=== PATIENT | male | born 1960 | race African-American/Black ===

== ENCOUNTER 2017-05-28 14:21 | Emergency (ER) | payer OTHER ==
[2017-05-28 14:26] VITALS: RESP 18
[2017-05-28] MEDS ORDERED: HYDROcodone/APAP 5-325MG 1 EACH TAB PO STA (14:34)
[2017-05-28] MEDS ORDERED: cloNIDine HCL 0.2 MG TAB PO STA (14:34)
--- NOTE | 2017-05-28 14:38 | ED ---
General Adult HPI - General Chief complaint: Extremity Injury, Lower Stated complaint: Ankle injury Time Seen by Provider: 05/28/17 14:29 Source: patient, RN notes reviewed, old records reviewed Mode of arrival: ambulatory Limitations: no limitations - History of Present Illness Initial comments: If complaint and history of present illness this is a 56-year-old male to complaint of right ankle pain and swelling for the past 3 days. States she does not know what happened. He did have a previous ankle sprain several years ago. Patient denies ever having had gout before. The patient states he does have a history of high blood pressure and does not take medications current blood pressure 180/100. He will be given Catapres for that x-ray of the ankle pending with uric acid pending. - Related Data Previous Rx's Medication Instructions Recorded Hydrocodone/Acetaminophen [[place] 1 each PO Q6HR PRN #10 tab 05/28/17 5-325] Ibuprofen [Motrin] 600 mg PO Q6HR PRN #20 tab 05/28/17 amLODIPine BESYLATE [Norvasc] 5 mg PO DAILY #60 tablet 05/28/17 Allergies Allergy/AdvReac Type Severity Reaction Status Date / Time No Known Allergies Allergy Verified 05/28/17 14:52 Review of Systems ROS Statement: Those systems with pertinent positive or pertinent negative responses have been documented in the HPI. Review of systems patient has no other complaints other than right ankle pain. Denies headache visual acuity changes no chest pain shortness breath GI/ problems. No neuro deficits. The patient's past medical problems possible high blood pressure which patient reports she does not take medications. Previous ankle sprain. Denies any surgeries. Denies ALLERGIES. Family history noncontributory ROS Other: All systems not noted in ROS Statement are negative. Past Medical History Past Medical History: No Reported History History of Any Multi-Drug Resistant Organisms: None Reported Past Surgical History: No Surgical Hx Reported Additional Past Surgical History / Comment(s): wrist surg. yrs. ago Past Anesthesia/Blood Transfusion Reactions: No Reported Reaction Past Psychological History: No Psychological Hx Reported Smoking Status: Never smoker Past Alcohol Use History: Occasional Past Drug Use History: None Reported - Past Family History Mother Family Medical History: No Reported History General Exam - General Exam Comments Initial Comments: General: The patient is awake and alert, playing of pain and swelling right ankle for 3 days. Vital signs elevated blood pressure 180/100. Eye: Pupils are equal, round and reactive to light, extra-ocular movements are intact ; there is normal conjunctiva bilaterally. No signs of icterus. Ears, nose, mouth and throat: There are moist mucous membranes and no oral lesions. Neck: The neck is supple, there is no tenderness. Cardiovascular: There is a regular rate and rhythm. No murmur, rub or gallop is appreciated. Respiratory: Lungs are clear to auscultation, respirations are non-labored, breath sounds are equal. No wheezes, stridor, rales, or rhonchi. Gastrointestinal: Soft, non-distended, non-tender abdomen without masses or organomegaly noted. There is no rebound or guarding present. No CVA tenderness. Bowel sounds are unremarkable. Back: There is no tenderness to palpation in the midline. There is no obvious deformity. Musculoskeletal: All extremities normal except right ankle which is swollen. The patient has flat feet. Neurovascular status of foot is intact. Not red or hot but it is swollen. Decreased range of motion secondary to pain. No pain to his knee or toes. Neurological: No evidence or complaints of any neuro deficits. Skin: Skin is warm and dry and no rashes or lesions are noted. Limitations: no limitations Course Vital Signs 05/28/17 05/28/17 05/28/17 14:23 15:00 16:05 Temperature 97.9 F Pulse Rate 106 H 80 Respiratory 18 18 Rate Blood Pressure 242/123 185/102 193/87 O2 Sat by Pulse 98 100 Oximetry 05/28/17 16:25 Temperature 98.4 F Pulse Rate 71 Respiratory 18 Rate Blood Pressure 168/75 O2 Sat by Pulse 100 Oximetry Medical Decision Making - Medical Decision Making Rectal decision making; x-ray of the ankle was done and reviewed by radiologist his impression is there is a plantar calcaneal spur. There is spurring of the anterior posterior malleolus. I see no fracture or dislocation. Final impression mild osteoarthritis. No fracture. Calcaneal spurring. No change. As read by Dr. Escamilla Uric acid 6.9. Medical decision making; patient's blood pressure remained elevated despite oral pain medication. He was given by mouth Catapres as well. Eventually an IV was started and was given 20 mg of hydralazine IV push 1 mg of Dilaudid IV push with good results. The patient's pain subsided. Blood pressure coming down currently 160/90. The patient reports she's never been on blood pressure medication he will be started on blood pressure meds at this time. Advised to call follow up with his family physician. Patient with placed on Norvasc 5 mg one daily and follow-up with family physician. - Lab Data Lab Results 05/28/17 Range/Units 14:43 Uric Acid 6.9 (3.5-8.5) mg/dL Disposition Clinical Impression: Right ankle sprain, Hypertension Disposition: HOME SELF-CARE Condition: Stable Instructions: Ankle Sprain (ED), Hypertension (ED) Additional Instructions: Ice elevate and rest your ankle. Take Norvasc for blood pressure problems. Follow-up with family physician for recheck of blood pressure. Take pain medication as directed. Prescriptions: amLODIPine BESYLATE [Norvasc] 5 mg PO DAILY #60 tablet Hydrocodone/Acetaminophen [[place] 5-325] 1 each PO Q6HR PRN #10 tab PRN Reason: Pain Ibuprofen [Motrin] 600 mg PO Q6HR PRN #20 tab PRN Reason: Pain Referrals: Shane Harrison MD [Primary Care Provider] - 1-2 days Time of Disposition: 16:41
--- NOTE | 2017-05-28 15:03 | XR ---
EXAMINATION TYPE: XR ankle complete RT DATE OF EXAM: 05/28/2017 COMPARISON: 11/29/2015 Pain HISTORY: Pain TECHNIQUE: 3 views. FINDINGS: There is a plantar calcaneal spur. There is spurring of the anterior and posterior malleolus. I see n o fracture nor dislocation. IMPRESSION: Mild osteoarthritis. No fracture. Calcaneal spurring. No change.
[2017-05-28] MEDS ORDERED: hydrALAZINE HCL 20 MG/ML 1 ML VIAL IVP STA (15:49)
[2017-05-28] MEDS ORDERED: HYDROmorphone 2 MG/ML 1 ML SYRINGE IVP STA (15:49)
[2017-05-28] MEDS ORDERED: HYDROmorphone 0.5 MG/0.5 ML SYRINGE IVP STA (15:57)
[2017-05-28] MEDS ORDERED: SODIUM CHLORIDE 0.9% 1,000 ML IV SCH (16:00)
[2017-05-28 16:26] VITALS: BP 168/75; PULSE 71; TEMP 98.4
== END 2017-05-28 16:52 | disposition home or self-care (01) ==
LOC: EC 14:21
DX: S93.401A Sprain of unspecified ligament of right ankle, initial encounter (principal); I10 Essential (primary) hypertension
CPT/HCPCS: 36415; 84550; 73610; 99284; 96374; 96375; J0360; J1170

== ENCOUNTER 2018-11-23 14:39 | Emergency (ER) | payer OTHER ==
[2018-11-23 14:43] VITALS: RESP 16
--- NOTE | 2018-11-23 15:46 | ED ---
Extremity Problem HPI - General Chief complaint: Extremity Problem,Nontraumatic Stated complaint: Ankle pain Time Seen by Provider: 11/23/18 14:50 Source: patient Mode of arrival: wheelchair Limitations: no limitations - History of Present Illness Initial comments: Patient is a 58-year-old male presenting to emergency Department with left foot pain. Patient states that he developed pain in the ankle region about a week ago that has been progressively worsening severity. Patient states the pain is throbbing and does not radiate anywhere. Patient states that he has been taking Motrin 500 to alleviate the pain with minimal improvement. Patient reports swelling in the ankle region that has slightly decreased in severity with using ice packs. Patient reports he developed erythema in the region that does not resolve. Patient denies fever, headache, nausea, vomiting. Patient states that the pain is so severe that he is unable to bear weight. Patient denies any tenderness over the calf and denies any cough or shortness of breath, chest pain or chest tightness. - Related Data Home Medications Medication Instructions Recorded Confirmed Acetaminophen [Tylenol Extra 1,500 mg PO TID PRN 11/23/18 11/23/18 Strength] Allergies Allergy/AdvReac Type Severity Reaction Status Date / Time No Known Allergies Allergy Verified 11/23/18 14:48 Review of Systems ROS Statement: Those systems with pertinent positive or pertinent negative responses have been documented in the HPI. ROS Other: All systems not noted in ROS Statement are negative. Past Medical History Past Medical History: No Reported History History of Any Multi-Drug Resistant Organisms: None Reported Past Surgical History: No Surgical Hx Reported Additional Past Surgical History / Comment(s): wrist surg. yrs. ago Past Anesthesia/Blood Transfusion Reactions: No Reported Reaction Past Psychological History: No Psychological Hx Reported Smoking Status: Never smoker Past Alcohol Use History: Occasional Past Drug Use History: None Reported - Past Family History Mother Family Medical History: No Reported History General Exam Limitations: no limitations General appearance: alert Head exam: Present: atraumatic, normocephalic, normal inspection Eye exam: Present: normal appearance Pupils: Present: normal accommodation Respiratory exam: Present: normal lung sounds bilaterally Cardiovascular Exam: Present: regular rate, normal rhythm, normal heart sounds Left Upper Leg exam: Present: normal inspection, full ROM Knee exam: Present: normal inspection, full ROM Lower Leg exam: Present: normal inspection, full ROM. Absent: Homans' sign Ankle exam: Present: tenderness (Pain along the medial and lateral malleoli), swelling, erythema. Absent: abrasion, laceration, ecchymosis, anterior draw sign Foot/Toe exam: Present: normal inspection, full ROM. Absent: tenderness, tenderness at base of 5th metatarsal Neurovascular tendon exam: Present: no vascular compromise Gait: unable to bear weight Neurological exam: Present: alert, oriented X3 Psychiatric exam: Present: normal affect, normal mood Skin exam: Present: warm, normal color Course Vital Signs 11/23/18 14:40 Temperature 97.7 F Pulse Rate 99 Respiratory 16 Rate Blood Pressure 160/82 O2 Sat by Pulse 99 Oximetry Medical Decision Making - Medical Decision Making Patient is a 58-year-old male present emergency department with left foot pain. X-rays negative for any acute fractures or dislocations. Swelling is most likely due to previous deltoid ligament injury. Patient advised to use Tylenol pain control. Patient advised to keep leg elevated and ice it to minimize swelling. Patient will be discharged with crutches and advised to minimize weightbearing. Patient advised to follow-up with orthopedics. Patient advised to return to emergency department if symptoms worsen. Case discussed with physician. Disposition Clinical Impression: Ankle sprain Disposition: HOME SELF-CARE Condition: Stable Instructions (If sedation given, give patient instructions): Ankle Sprain (ED) Additional Instructions: Please take time for pain control. Please follow up with orthopedics. Please return to emergency department if symptoms worsen. Keep leg elevated and use ice to minimize swelling. Is patient prescribed a controlled substance at d/c from ED?: No Referrals: Shane Harrison MD [Primary Care Provider] - 1-2 days
--- NOTE | 2018-11-23 16:12 | XR ---
EXAMINATION TYPE: XR ankle complete LT DATE OF EXAM: 11/23/2018 CLINICAL HISTORY: Medial left ankle pain and swelling after twisting injury 2 weeks ago TECHNIQUE: Frontal, lateral and oblique images of the left ankle are obtained. COMPARISON: None. FINDINGS: There is no acute fracture/dislocation evident in the left ankle. Well-corticated osseous fragment is seen inferior to the medial malleolus technical service representative of old deltoid ligament injury. Smal l vessel atherosclerosis is seen posterior to the tibiotalar joint. Very small plantar enthesophyte i s seen. The ankle mortise appears within normal limits. The overlying soft tissue appears unremarkab le. IMPRESSION: Soft tissue swelling over the medial ankle inferior to the medial malleolus. Sequela of p rior deltoid ligament injury. No acute fracture or malalignment of the left ankle.
[2018-11-23 16:42] VITALS: BP 138/74; PULSE 89; TEMP 97.8
== END 2018-11-23 16:41 | disposition home or self-care (01) ==
LOC: EC 14:39
DX: S93.401A Sprain of unspecified ligament of right ankle, initial encounter (principal); X58.XXXA Exposure to other specified factors, initial encounter
CPT/HCPCS: 99283

== ENCOUNTER 2019-07-12 14:54 | Emergency (ER) | payer OTHER ==
[2019-07-12] MEDS ORDERED: IPRATROPIUM-ALBUTEROL 3 ML NEB INHALATION STA (16:13)
[2019-07-12] MEDS ORDERED: SODIUM CHLORIDE 0.9% 1,000 ML IV STA (16:13)
[2019-07-12] MEDS ORDERED: ACETAMINOPHEN TAB 500 MG TAB PO STA (16:13)
--- NOTE | 2019-07-12 16:16 | ED ---
General Adult HPI - General Chief complaint: Upper Respiratory Infection Stated complaint: Cough Time Seen by Provider: 07/12/19 15:42 Source: patient, RN notes reviewed Mode of arrival: ambulatory Limitations: no limitations - History of Present Illness Initial comments: Patient is a pleasant 55-year-old male presenting to the emergency Department with several complaints. Onset of symptoms was a couple of days ago. Patient does have cough with occasional green sputum. Patient does have chest discomfort that he relates to the cough and has been constant. Patient also complains of headaches that he also states is related with the cough. Patient has had chills and myalgias. Patient is unclear if he has had fever or not. Sometimes patient feels she may be a little short of breath. No history of similar symptoms previously. No leg pain or leg swelling. - Related Data Home Medications Medication Instructions Recorded Confirmed Acetaminophen [Tylenol Extra 1,500 mg PO TID PRN 11/23/18 11/23/18 Strength] Previous Rx's Medication Instructions Recorded Albuterol Nebulized [Ventolin 2.5 mg INHALATION QID PRN #125 nebu 07/12/19 Nebulized] predniSONE 20 mg PO BID #10 tab 07/12/19 Allergies Allergy/AdvReac Type Severity Reaction Status Date / Time No Known Allergies Allergy Verified 07/12/19 14:59 Review of Systems ROS Statement: Those systems with pertinent positive or pertinent negative responses have been documented in the HPI. ROS Other: All systems not noted in ROS Statement are negative. Constitutional: Reports: as per HPI, chills Eyes: Denies: eye pain ENT: Denies: ear pain Respiratory: Reports: cough, dyspnea Cardiovascular: Reports: as per HPI Endocrine: Reports: fatigue Gastrointestinal: Denies: abdominal pain Genitourinary: Denies: dysuria Musculoskeletal: Denies: back pain Skin: Denies: rash Neurological: Reports: as per HPI, headache Past Medical History Past Medical History: No Reported History History of Any Multi-Drug Resistant Organisms: None Reported Past Surgical History: No Surgical Hx Reported Additional Past Surgical History / Comment(s): wrist surg. yrs. ago Past Anesthesia/Blood Transfusion Reactions: No Reported Reaction Past Psychological History: No Psychological Hx Reported Smoking Status: Never smoker Past Alcohol Use History: Occasional Past Drug Use History: None Reported - Past Family History Mother Family Medical History: No Reported History General Exam Limitations: no limitations General appearance: alert, in no apparent distress Head exam: Present: normocephalic Eye exam: Present: normal appearance, PERRL ENT exam: Present: normal oropharynx Neck exam: Present: normal inspection. Absent: tenderness, meningismus Respiratory exam: Present: rhonchi Cardiovascular Exam: Present: regular rate, normal rhythm GI/Abdominal exam: Present: soft. Absent: tenderness Extremities exam: Present: normal inspection. Absent: pedal edema, calf tenderness Neurological exam: Present: alert Psychiatric exam: Present: normal affect, normal mood Skin exam: Present: normal color Course Vital Signs 07/12/19 07/12/19 07/12/19 14:59 16:32 16:39 Temperature 97.8 F Pulse Rate 87 82 83 Respiratory 18 16 16 Rate Blood Pressure 151/92 O2 Sat by Pulse 98 Oximetry 07/12/19 18:12 Temperature 98.1 F Pulse Rate 85 Respiratory 18 Rate Blood Pressure 131/81 O2 Sat by Pulse 97 Oximetry Medical Decision Making - Medical Decision Making Patient reevaluated and resting comfortably in bed. Patient states mild improvement of symptoms. Patient denies any chest discomfort. Patient updated on results. Patient presents with symptoms likely infectious/upper respiratory or gym. Despite this patient was offered admission for further evaluation for c ardiac however patient refuses this stating it is not necessary. - Lab Data Result diagrams: 07/12/19 16:09 07/12/19 16:09 Lab Results 07/12/19 07/12/19 07/12/19 Range/Units 16:09 16:09 16:09 WBC 5.3 (3.8-10.6) k/uL RBC 4.66 (4.30-5.90) m/uL Hgb 13.8 (13.0-17.5) gm/dL Hct 40.5 (39.0-53.0) % MCV 86.8 (80.0-100.0) fL MCH 29.6 (25.0-35.0) pg MCHC 34.0 (31.0-37.0) g/dL RDW 12.2 (11.5-15.5) % Plt Count 285 (150-450) k/uL Neutrophils % 45 % Lymphocytes % 39 % Monocytes % 6 % Eosinophils % 6 % Basophils % 0 % Neutrophils # 2.4 (1.3-7.7) k/uL Lymphocytes # 2.1 (1.0-4.8) k/uL Monocytes # 0.3 (0-1.0) k/uL Eosinophils # 0.3 (0-0.7) k/uL Basophils # 0.0 (0-0.2) k/uL PT 10.2 (9.0-12.0) sec INR 0.9 (<1.2) APTT 24.9 (22.0-30.0) sec D-Dimer 0.38 (<0.60) mg/L FEU Sodium 141 (137-145) mmol/L Potassium 4.4 (3.5-5.1) mmol/L Chloride 104 (98-107) mmol/L Carbon Dioxide 22 (22-30) mmol/L Anion Gap 15 mmol/L BUN 18 (9-20) mg/dL Creatinine 1.01 (0.66-1.25) mg/dL Est GFR (CKD-EPI)AfAm >90 (>60 ml/min/1.73 sqM) Est GFR (CKD-EPI)NonAf 81 (>60 ml/min/1.73 sqM) Glucose 123 H (74-99) mg/dL Calcium 9.4 (8.4-10.2) mg/dL Total Bilirubin 0.5 (0.2-1.3) mg/dL AST 45 (17-59) U/L ALT 42 (4-49) U/L Alkaline Phosphatase 80 (38-126) U/L Troponin I (0.000-0.034) ng/mL NT-Pro-B Natriuret Pep pg/mL Total Protein 8.3 H (6.3-8.2) g/dL Albumin 4.9 (3.5-5.0) g/dL Influenza Type A RNA (Not Detectd) Influenza Type B (PCR) (Not Detectd) 07/12/19 07/12/19 07/12/19 Range/Units 16:09 16:09 16:20 WBC (3.8-10.6) k/uL RBC (4.30-5.90) m/uL Hgb (13.0-17.5) gm/dL Hct (39.0-53.0) % MCV (80.0-100.0) fL MCH (25.0-35.0) pg MCHC (31.0-37.0) g/dL RDW (11.5-15.5) % Plt Count (150-450) k/uL Neutrophils % % Lymphocytes % % Monocytes % % Eosinophils % % Basophils % % Neutrophils # (1.3-7.7) k/uL Lymphocytes # (1.0-4.8) k/uL Monocytes # (0-1.0) k/uL Eosinophils # (0-0.7) k/uL Basophils # (0-0.2) k/uL PT (9.0-12.0) sec INR (<1.2) APTT (22.0-30.0) sec D-Dimer (<0.60) mg/L FEU Sodium (137-145) mmol/L Potassium (3.5-5.1) mmol/L Chloride (98-107) mmol/L Carbon Dioxide (22-30) mmol/L Anion Gap mmol/L BUN (9-20) mg/dL Creatinine (0.66-1.25) mg/dL Est GFR (CKD-EPI)AfAm (>60 ml/min/1.73 sqM) Est GFR (CKD-EPI)NonAf (>60 ml/min/1.73 sqM) Glucose (74-99) mg/dL Calcium (8.4-10.2) mg/dL Total Bilirubin (0.2-1.3) mg/dL AST (17-59) U/L ALT (4-49) U/L Alkaline Phosphatase (38-126) U/L Troponin I <0.012 (0.000-0.034) ng/mL NT-Pro-B Natriuret Pep 36 pg/mL Total Protein (6.3-8.2) g/dL Albumin (3.5-5.0) g/dL Influenza Type A RNA Not Detected (Not Detectd) Influenza Type B (PCR) Not Detected (Not Detectd) Disposition Clinical Impression: Bronchitis, Acute upper respiratory infection Disposition: HOME SELF-CARE Condition: Stable Instructions (If sedation given, give patient instructions): Upper Respiratory Infection (ED) Additional Instructions: Please follow-up with primary care physician in the next couple days for recheck. Return for difficulty breathing, pain, worsening symptoms or other concerns. Prescriptions have been sent to [facility]. Prescriptions: predniSONE 20 mg PO BID #10 tab Albuterol Nebulized [Ventolin Nebulized] 2.5 mg INHALATION QID PRN #125 nebu PRN Reason: Dyspnea Is patient prescribed a controlled substance at d/c from ED?: No Referrals: Shane Harrison MD [Primary Care Provider] - 1-2 days Time of Disposition: 18:27
[2019-07-12 16:31] LABS: ALT 42 U/L (4-49); AST 45 U/L (17-59); African American GFR (CKD) >90 (>60 ml/min/1.73 sqM); Albumin 4.9 g/dL (3.5-5.0); Alkaline Phosphatase 80 U/L (38-126); Anion Gap 15 mmol/L; Blood Urea Nitrogen 18 mg/dL (9-20); Calcium 9.4 mg/dL (8.4-10.2); Carbon Dioxide 22 mmol/L (22-30); Chloride 104 mmol/L (98-107); Glucose 123 mg/dL (74-99); Non-African American GFR(CKD) 81 (>60 ml/min/1.73 sqM); Potassium 4.4 mmol/L (3.5-5.1); Sodium 141 mmol/L (137-145); Total Bilirubin 0.5 mg/dL (0.2-1.3); Total Protein 8.3 g/dL (6.3-8.2)
[2019-07-12 16:36] LABS: D-Dimer 0.38 mg/L FEU (<0.60); INR 0.9 (<1.2); Partial Thromboplastin Time 24.9 sec (22.0-30.0); Prothrombin Time 10.2 sec (9.0-12.0)
[2019-07-12 16:37] LABS: Basophils % (A) 0 %; Eosinophils # (A) 0.3 k/uL (0-0.7); Eosinophils % (A) 6 %; HCT 40.5 % (39.0-53.0); HGB 13.8 gm/dL (13.0-17.5); Lymphocytes # (A) 2.1 k/uL (1.0-4.8); Lymphocytes % (A) 39 %; MCH 29.6 pg (25.0-35.0); MCV 86.8 fL (80.0-100.0); Mean Platelet Volume 6.3; Monocytes # (A) 0.3 k/uL (0-1.0); Monocytes % (A) 6 %; Neutrophils # (A) 2.4 k/uL (1.3-7.7); Neutrophils % (A) 45 %; Platelet Count 285 k/uL (150-450); RBC 4.66 m/uL (4.30-5.90); RDW 12.2 % (11.5-15.5); WBC 5.3 k/uL (3.8-10.6)
--- NOTE | 2019-07-12 17:32 | XR ---
EXAMINATION TYPE: XR chest 2V DATE OF EXAM: 07/12/2019 COMPARISON: None INDICATION: Difficulty breathing, cough TECHNIQUE: Frontal and lateral views of the chest are obtained. FINDINGS: The heart size is normal. The pulmonary vasculature is normal. The lungs are clear. Spondylosis through the mid to lower thoracic spine. IMPRESSION: 1. No acute pulmonary process.
[2019-07-12 18:13] VITALS: RESP 18
[2019-07-12 18:51] VITALS: BP 119/72; PULSE 91; TEMP 97.8
== END 2019-07-12 18:51 | disposition home or self-care (01) ==
LOC: EC 14:54
DX: J40 Bronchitis, not specified as acute or chronic (principal); J06.9 Acute upper respiratory infection, unspecified
CPT/HCPCS: 36415; 71046; 80053; 83880; 84484; 85025; 85379; 85610; 85730; 87502; 93005; 94640; 96360; 96361; 99284